=== PATIENT | male | born 1950 | race African-American/Black ===

== ENCOUNTER 2020-07-05 12:01 | Emergency (ER) | payer MEDICARE, MEDICAID, SELFPAY ==
[~2020-07-05] VITALS: Ht 172.7 cm; Wt 68.0 kg
[2020-07-05 12:10] VITALS: BP_SYST 151
--- NOTE | 2020-07-05 12:27 | NUR ---
RECEIVED AND IN ROOM WATSON TO ASSUME CARE. BIB EMT FROM LOCAL [facility] FOR MEDICASL CLEARANCE
--- NOTE | 2020-07-05 12:35 | NUR ---
DR JACKSON IN TO ASSESS
--- NOTE | 2020-07-05 12:45 | NUR ---
CALM, ALERT, CONFUSED, TALKING TO HIMSELF, RESP UNLABORED, DENIES PAIN. COMMUNICATES IN BRIEF SHORT RESPONSES, NO DISTRESS. HERE FOR MEDICAL CLEARANCE, LABS SENT, MS\NALLELY/CAS COMPLETED
[2020-07-05 13:21] LABS: BASOPHILS % (AUTO) 0.4 % (0.0-2.0); EOSINOPHILS # (AUTO) 0.3 K/uL (0.0-0.4); EOSINOPHILS % (AUTO) 5.1 % (0.0-4.0); HEMATOCRIT 40.9 % (36-54); HEMOGLOBIN 13.4 g/dL (14.0-18.0); LYMPHOCYTES # (AUTO) 1.1 K/uL (1.0-5.5); LYMPHOCYTES % (AUTO) 20.8 % (20.5-51.5); MEAN CORPUSCULAR HEMOGLOBIN 30 pg (27-31); MEAN CORPUSCULAR HGB CONC 33 % (32-36); MEAN CORPUSCULAR VOLUME 92 fL (79.0-98.0); MONOCYTES # (AUTO) 0.6 K/uL (0.0-1.0); MONOCYTES % (AUTO) 12.1 % (1.7-9.3); NEUTROPHILS # (AUTO) 3.1 K/uL (1.8-7.7); NEUTROPHILS % (AUTO) 61.6 % (40.0-70.0); PLATELET COUNT (AUTO) 184 K/uL (130-430); RED BLOOD CELL COUNT(AUTO) 4.46 MIL/uL (4.2-6.2); RED CELL DISTRIBUTION WIDTH 14.8 % (9.0-15.0); WHITE BLOOD COUNT (AUTO) 5.1 K/uL (4.8-10.8)
[2020-07-05 13:29] LABS: ANION GAP 7 (5-15); CALCIUM 9.4 mg/dL (8.4-11.0); CHLORIDE 103 mmol/L (98-107); CREATININE 0.71 mg/dL (0.55-1.30); GLUCOSE 77 mg/dL (70-99); SODIUM SERUM 141 mmol/L (136-145); UREA NITROGEN, BLOOD 20 mg/dL (8-21)
[2020-07-05 13:30] LABS: GFR AFRICAN AMERICAN 141 mL/min (>90)
[2020-07-05 13:35] LABS: ALANINE AMINOTRANSFERASE 22 U/L (12-78); ALBUMIN 3.5 g/dL (3.4-4.8); ASPARTATE AMINOTRANSFERASE 16 U/L (10-37); TOTAL BILIRUBIN 0.4 mg/dL (0.0-1.0)
[2020-07-05 13:36] LABS: ALCOHOL, BLOOD < 3 mg/dL (<10)
[2020-07-05 13:37] LABS: ACETAMINOPHEN < 1 ug/mL (1-30)
[2020-07-05 13:38] LABS: CHOLESTEROL 205 mg/dL (<200); HDL CHOLESTEROL 76 mg/dL (>45); LDL CHOLESTEROL 112 mg/dL (<100); TRIGLYCERIDES 41 mg/dL (30-150)
--- NOTE | 2020-07-05 14:10 | NUR ---
TRANSPORTATION CALLED, 30 MIN ETA. PT CALM, ALERT, COOPERATIVE
[2020-07-05] MEDS ORDERED: cloNIDine HCL 0.1 MG TABLET PO ONE (14:30)
--- NOTE | 2020-07-05 14:36 | NUR ---
Patient given written and verbal discharge instructions and verbalizes understanding. ER MD discussed with patient the results and treatment provided. Patient in stable condition. Patient educated on pain management and to follow up with PMD. Pain Scale 0/10 Opportunity for questions provided and answered. Medication side effect fact sheet provided.
[2020-07-05 14:37] VITALS: BP_SYST 171
[2020-07-05] MEDS ORDERED: cloNIDine HCL 0.1 MG TABLET ONE (14:46)
== END 2020-07-05 14:36 ==
LOC: SED 12:01
DX: R41.0 Disorientation, unspecified (principal); I10 Essential (primary) hypertension; E11.9 Type 2 diabetes mellitus without complications; Z20.828 Contact with and (suspected) exposure to other viral communicable diseases
CPT/HCPCS: 80053; 80061; 83036; 85025; 87081; 99285; G0480; G0481; G0482; U0003